=== PATIENT | female | born 1990 | race Caucasian/White ===

== ENCOUNTER → 2017-03-06 | Outpatient (REF) | payer OTHER ==
[2017-03-06 20:06] LABS: BASO # 0.1 10^3/uL (0.0-0.2); BASO % 0.6 % (0.0-1.0); EOS # 0.7 10^3/uL (0.0-0.50); EOS % 8.1 % (0.0-3.0); HEMATOCRIT 42.6 % (36.0-47.0); HEMOGLOBIN 14.4 g/dl (12.0-16.0); IMMATURE GRANULOCYTE % 0.1 % (0-0); LYMPH # 2.4 10^3/uL (1.5-6.5); MEAN CORPUSCULAR HEMOGLOBIN 33.4 pg (27.0-33.0); MEAN CORPUSCULAR HGB CONC 33.8 g/dl (32.0-36.5); MEAN CORPUSCULAR VOLUME 98.8 fl (80.0-96.0); MONO # 0.6 10^3/uL (0.0-0.8); MONO % 7.1 % (0.0-5.0); NEUTROPHILS # 4.6 10^3/uL (1.8-7.7); NEUTROPHILS % 55.1 % (36.0-66.0); PLATELET COUNT, AUTOMATED 249 10^3/uL (150-450); RED BLOOD COUNT 4.31 10^6/uL (4.00-5.40); RED CELL DISTRIBUTION WIDTH 12.3 % (11.5-14.5); WHITE BLOOD COUNT 8.4 10^3/uL (4.0-10.0)
[2017-03-06 20:56] LABS: ERYTHROCYTE SEDIMENTATION RATE 5 mm/hr (0-20)
[2017-03-06 21:03] LABS: RHEUMATOID FACTOR QUANT < 10.0 IU/ML (0-15.0)
[2017-03-06 21:03] LABS: C REACTIVE PROTEIN QUANTITATIV 0.39 MG/DL (0.00-0.30)
[2017-03-10 00:06] LABS: ANTINUCLEAR ANTIBODIES DIRECT Negative (Negative); Lyme Disease IgG/IgM Antibodie <0.91 ISR (0.00-0.90); Lyme Disease IgM Ab Quantitati <0.80 index (0.00-0.79)
== END ==
LOC: M LABDRAW1 17:27
DX: M94.261 Chondromalacia, right knee (principal)

== ENCOUNTER 2019-02-20 14:20 | Emergency (ER) | payer OTHER ==
[~2019-02-20] VITALS: Ht 162.6 cm; Wt 90.9 kg
[2019-02-20] MEDS ORDERED: NORCO, ANEXSIA 5/325MG TABLET (HYDROcodone/ACETAMINOPHEN) PO ONE (15:00)
[2019-02-20 15:10] LABS: BASO % 0.3 % (0.0-1.0); EOS # 0.5 10^3/uL (0.0-0.5); EOS % 4.1 % (0.0-3.0); HEMATOCRIT 41.4 % (36.0-47.0); HEMOGLOBIN 13.8 g/dl (12.0-15.5); LYMPH # 3.5 10^3/uL (1.5-5.0); LYMPH % 28.5 % (24.0-44.0); MEAN CORPUSCULAR HEMOGLOBIN 31.4 pg (27.0-33.0); MEAN CORPUSCULAR HGB CONC 33.3 g/dl (32.0-36.5); MEAN CORPUSCULAR VOLUME 94.3 fl (80.0-96.0); MONO # 0.9 10^3/uL (0.0-0.8); NEUTROPHILS # 7.4 10^3/uL (1.5-8.5); NEUTROPHILS % 59.8 % (36.0-66.0); PLATELET COUNT, AUTOMATED 211 10^3/uL (150-450); RED BLOOD COUNT 4.39 10^6/uL (4.00-5.40); WHITE BLOOD COUNT 12.4 10^3/uL (4.0-10.0)
[2019-02-20 15:38] LABS: BLOOD UREA NITROGEN 4 MG/DL (7-18); CALCIUM LEVEL 8.3 MG/DL (8.5-10.1); CARBON DIOXIDE LEVEL 26 MEQ/L (21-32); CHLORIDE LEVEL 108 MEQ/L (98-107); CREATININE FOR GFR 0.55 MG/DL (0.55-1.30); GLOMERULAR FILTRATION RATE > 60.0 (>60); GLUCOSE, FASTING 105 MG/DL (70-100); POTASSIUM SERUM 3.5 MEQ/L (3.5-5.1); SODIUM LEVEL 142 MEQ/L (136-145)
--- NOTE | 2019-02-20 15:53 | REP ---
Soft-tissue ultrasound left buttock region. History: Swelling and pain, rule out abscess. Findings: Soft tissue sonography in the area of pain and swelling shows a diffuse pattern of subcutaneous edema consistent with cellulitis. There are two tiny hypoechoic fluid collections immediately beneath the dermis in the region. These measure 5 x 7 x 4 mm and 2 x 11 x 5 mm. No drainable abscess is appreciated. Impression: Diffuse edema consistent with cellulitis. There are two tiny subcentimeter hypoechoic fluid collections just beneath the dermis. No drainable abscess is seen. Electronically Signed by Mat Gonsalves MD 02/20/2019 03:45 P
[2019-02-20] MEDS ORDERED: DOXYCYCLINE HYCLATE 100 MG TAB PO ONE (16:00)
[2019-02-20] MEDS ORDERED: DOXY100C37 PO (16:02)
[2019-02-20 16:18] VITALS: BP 126/82
== END 2019-02-20 16:19 | disposition home or self-care (01) ==
LOC: M ED 14:20
DX: L03.317 Cellulitis of buttock (principal); F17.210 Nicotine dependence, cigarettes, uncomplicated; Z91.040 Latex allergy status

== ENCOUNTER 2019-04-07 08:52 | Emergency (ER) | payer OTHER ==
[~2019-04-07] VITALS: Ht 162.6 cm; Wt 97.5 kg
[~2019-04-07 08:52] MED LIST: DOXY100C37 PO
[2019-04-07] MEDS ORDERED: CLON-412 (08:59)
[2019-04-07] MEDS ORDERED: MIRT1TAB (08:59)
[2019-04-07] MEDS ORDERED: NAPR250T4 PO (08:59)
[2019-04-07] MEDS ORDERED: TOPI25TA10 (08:59)
[2019-04-07] MEDS ORDERED: ACETAMINOPHEN 650MG ER TAB (TYLENOL ARTHRITIS) PO PRN (10:15)
--- NOTE | 2019-04-07 10:33 | REP ---
Clinical: Right shoulder pain . Technique: Internal rotation, external rotation, and Y view. Findings: No acute fracture or dislocation. The acromioclavicular and glenohumeral joints are intact. No periarticular calcifications or degenerative changes are appreciated. Sub acromial space is normal. Surrounding soft tissues are unremarkable. Impression: Normal right shoulder radiographs. Electronically Signed by Ulises Galeano MD 04/07/2019 10:24 A
--- NOTE | 2019-04-07 10:34 | REP ---
Right elbow: Four views. History: Right elbow pain. Findings: Four views right elbow demonstrate normal alignment. No fracture or subluxation is seen. There is no evidence of joint effusion. Impression: Negative radiographs of the right elbow. Electronically Signed by Mat Gonsalves MD 04/07/2019 10:24 A
[2019-04-07 10:53] VITALS: BP 132/74
== END 2019-04-07 10:59 | disposition home or self-care (01) ==
LOC: M ED 08:52
DX: M25.511 Pain in right shoulder (principal); M17.0 Bilateral primary osteoarthritis of knee; F17.200 Nicotine dependence, unspecified, uncomplicated; Z91.040 Latex allergy status; Z79.899 Other long term (current) drug therapy; Z98.890 Other specified postprocedural states